=== PATIENT | female | born 1955 | race Caucasian/White ===

== ENCOUNTER 2018-01-25 16:45 | Emergency (ER) | payer OTHER ==
[~2018-01-25 16:45] MED LIST: CANA300T; CLOP75TA32; ESCI10TA54; EZET1TAB13 PO; GLIP10TA9; Isosorbide Mononitrate PO; LEVO88TA7; LOSA25TA21; METF10004; METO50
== END 2018-01-25 19:41 | disposition home or self-care (01) ==
LOC: EDH 16:45
DX: S80.02XA Contusion of left knee, initial encounter (principal); E11.9 Type 2 diabetes mellitus without complications; I25.10 Atherosclerotic heart disease of native coronary artery without angina pectoris; E07.9 Disorder of thyroid, unspecified; Z90.49 Acquired absence of other specified parts of digestive tract; Z90.710 Acquired absence of both cervix and uterus; Z87.891 Personal history of nicotine dependence; W18.39XA Other fall on same level, initial encounter; Y93.01 Activity, walking, marching and hiking; Y92.89 Other specified places as the place of occurrence of the external cause; Y99.8 Other external cause status
CPT/HCPCS: 36415; 73562; 93005

== ENCOUNTER 2019-12-06 15:51 | Emergency (ER) | payer OTHER ==
[~2019-12-06 15:51] MED LIST changes: -LOSA25TA21; +LOSA25TA41; +METF-446; -METF10004
== END 2019-12-06 16:51 | disposition home or self-care (01) ==
LOC: EDH 15:51
DX: S83.91XA Sprain of unspecified site of right knee, initial encounter (principal); I25.10 Atherosclerotic heart disease of native coronary artery without angina pectoris; E11.9 Type 2 diabetes mellitus without complications; E07.9 Disorder of thyroid, unspecified; W18.39XA Other fall on same level, initial encounter; Y93.89 Activity, other specified; Y92.099 Unspecified place in other non-institutional residence as the place of occurrence of the external cause; Y99.8 Other external cause status
CPT/HCPCS: 73562

== ENCOUNTER 2020-06-22 09:01 | Emergency (ER) | payer SELFPAY ==
[2020-06-22 09:44] LABS: BASOPHILS % (AUTO) 0.4 % (0.0-5.0); EOSINOPHILS % (AUTO) 3.1 % (0.0-8.0); HEMATOCRIT 40.9 % (36-48); MEAN CORPUSCULAR HEMOGLOBIN 27.4 pg (27.0-33.0); MEAN CORPUSCULAR HGB CONC 31.5 g/dL (32.0-36.0); MEAN CORPUSCULAR VOLUME 86.8 fL (79-99); MONOCYTES % (AUTO) 7.5 % (3.0-13.0); NEUTROPHILS % (AUTO) 74.6 % (40.0-77.0); PLATELET COUNT (AUTO) 259 K/uL (130-400); RED BLOOD CELL COUNT(AUTO) 4.71 MIL/uL (4.00-5.50); WHITE BLOOD COUNT (AUTO) 7.6 K/uL (4.8-10.8)
[2020-06-22 09:45] LABS: APPEARANCE,URINE Clear (CLEAR); BILIRUBIN,URINE Negative (NEGATIVE); COLOR,URINE Yellow (YELLOW); GLUCOSE, URINE (UA) >=1000 mg/dL (NEGATIVE); KETONES,URINE 15 mg/dL (NEGATIVE); LEUKOCYTE ESTERASE ,URINE Negative (NEGATIVE); NITRATE,URINE Negative (NEGATIVE); OCCULT BLOOD,URINE Negative (NEGATIVE); PROTEIN,URINE Negative (NEGATIVE); UROBILINOGEN,URINE 0.2 mg/dL (0.2-1.0)
[2020-06-22 09:52] LABS: BACTERIA,URINE Rare /HPF (None Seen); RBC,URINE 0-1 /HPF (0-1); SQUAMOUS EPITHELIAL CELL,UR Rare /HPF (0-2); WBC,URINE 0-1 /HPF (0-1)
[2020-06-22 09:57] LABS: ALBUMIN 3.8 g/dL (3.5-5.0); BILIRUBIN,TOTAL 0.3 mg/dL (0.2-1.0); CREATININE 1.2 mg/dL (0.5-1.5); POTASSIUM 4.2 mmol/L (3.5-5.1); TOTAL PROTEIN, SERUM 7.7 g/dL (6.0-8.3)
[2020-06-22] MEDS ORDERED: SODIUM CHLORIDE 0.9% 500ML 500 ML IV ONE (10:45)
== END 2020-06-22 14:57 | disposition home or self-care (01) ==
LOC: EDH 09:01
DX: G89.29 Other chronic pain (principal); R10.2 Pelvic and perineal pain; N76.0 Acute vaginitis; E11.65 Type 2 diabetes mellitus with hyperglycemia; I25.10 Atherosclerotic heart disease of native coronary artery without angina pectoris; Z90.49 Acquired absence of other specified parts of digestive tract; Z90.710 Acquired absence of both cervix and uterus; Z98.890 Other specified postprocedural states
CPT/HCPCS: 36415; 80053; 81001; 82948 ×2; 85025; 96372; 99283; J7040

== ENCOUNTER 2020-09-02 12:34 | Inpatient (IN) | payer SELFPAY ==
[~2020-09-02] VITALS: Ht 162.6 cm; Wt 103.6 kg
[2020-09-02] MEDS: SODIUM CHLORIDE 0.9% 1000ML 1,000 ML IV SCH ×3 (06:54→21:30)
[~2020-09-02 12:34] MED LIST changes: -ESCI10TA54; +ESCI10TA70
[2020-09-02 13:18] LABS: BASOPHILS % (AUTO) 0.3 % (0.0-5.0); EOSINOPHILS % (AUTO) 4.8 % (0.0-8.0); HEMATOCRIT 37.2 % (36-48); LYMPHOCYTES % (AUTO) 17.3 % (21.0-51.0); MEAN CORPUSCULAR HEMOGLOBIN 27.6 pg (27.0-33.0); MEAN CORPUSCULAR HGB CONC 31.7 g/dL (32.0-36.0); MEAN CORPUSCULAR VOLUME 86.9 fL (79-99); MONOCYTES % (AUTO) 8.2 % (3.0-13.0); NEUTROPHILS % (AUTO) 69.1 % (40.0-77.0); PLATELET COUNT (AUTO) 273 K/uL (130-400); RED BLOOD CELL COUNT(AUTO) 4.28 MIL/uL (4.00-5.50); WHITE BLOOD COUNT (AUTO) 7.3 K/uL (4.8-10.8)
[2020-09-02 13:43] LABS: CREATININE 0.9 mg/dL (0.5-1.5); POTASSIUM 3.1 mmol/L (3.5-5.1)
[2020-09-02 13:48] LABS: ALBUMIN 3.5 g/dL (3.5-5.0); BILIRUBIN,TOTAL 0.7 mg/dL (0.2-1.0); TOTAL PROTEIN, SERUM 7.5 g/dL (6.0-8.3)
[2020-09-02] MEDS ORDERED: MORPHINE SULFATE 4 MG/1ML SYG ONE (14:04)
[2020-09-02] MEDS ORDERED: ONDANSETRON HCL 4 MG/2 ML VIAL ONE (14:04)
[2020-09-02] MEDS ORDERED: DiphenhydrAMINE HCL 50 MG/ML VIAL ONE (14:14)
[2020-09-02 14:29] LABS: APPEARANCE,URINE Cloudy (CLEAR); BILIRUBIN,URINE Negative (NEGATIVE); COLOR,URINE Yellow (YELLOW); GLUCOSE, URINE (UA) Negative (NEGATIVE); KETONES,URINE Trace mg/dL (NEGATIVE); LEUKOCYTE ESTERASE ,URINE Negative (NEGATIVE); NITRATE,URINE Negative (NEGATIVE); OCCULT BLOOD,URINE Negative (NEGATIVE); PH,URINE 5.5 (5.0-8.0); PROTEIN,URINE Trace mg/dL (NEGATIVE)
[2020-09-02 14:36] LABS: BACTERIA,URINE Few /HPF (None Seen); MUCUS,URINE Few LPF (None Seen)
[2020-09-02] MEDS ORDERED: POTASSIUM BICARB/CIT AC 25 MEQ TABLET.EFF ONE (14:45)
[2020-09-02] MEDS ORDERED: TRAMADOL HCL 50 MG TABLET PO PRN (17:30)
[2020-09-02] MEDS ORDERED: POTASSIUM CHLORIDE 20 MEQ ERTAB PO SCH (17:30)
[2020-09-02] MEDS ORDERED: ACETAMINOPHEN 325 MG TAB PO PRN (17:30)
[2020-09-02] MEDS: CEFAZOLIN SODIUM 1 GM VIAL IVP SCH (17:30)
[2020-09-02 17:49] LABS: HEMOGLOBIN A1C 8.4 % (4.0-6.0)
[2020-09-02] MEDS ORDERED: SODIUM CHLORIDE 0.9% 1000ML 1,000 ML IV ONE (17:49)
[2020-09-02] MEDS ORDERED: CEFAZOLIN SODIUM 1 GM VIAL ONE (17:49)
[2020-09-02 17:52] LABS: CHOLESTEROL 241 mg/dL (<200); HDL CHOLESTEROL 137 mg/dL (35-85); LDL DIRECT 135 mg/dL (0-99); TRIGLYCERIDES 210 mg/dL (30-200)
[2020-09-02] MEDS ORDERED: MAGNESIUM 2GM PREMIX 50ML 50 ML IV ONE ×2 (18:06→20:09)
[2020-09-02] MEDS ORDERED: MAGNESIUM 2GM PREMIX 50ML 50 ML IV SCH (18:15)
[2020-09-02] MEDS ORDERED: METOPROLOL TARTRATE 50 MG TAB ONE (20:59)
[2020-09-02] MEDS ORDERED: ASPIRIN 81MG TAB.CHEW ONE (20:59)
[2020-09-02] MEDS: INSULIN HUMULIN R 100 UNIT/ML 3ML SQ SCH (21:00)
[2020-09-02] MEDS: ASPIRIN 81MG TAB.CHEW PO SCH (21:00)
[2020-09-02] MEDS: METOPROLOL TARTRATE 50 MG TAB PO SCH (21:00)
[2020-09-02 22:00] VITALS: BP 136/78
[2020-09-03] VITALS: BP 142/79
[2020-09-03] MEDS: HYDROMORPHONE HCL 0.5 MG/0.5 ML ML IVP PRN ×2 (00:01→19:34)
[2020-09-03 03:45] VITALS: BP 134/75
[2020-09-03] MEDS ORDERED: LACTATED RINGERS 1000ML 1,000 ML IV ONE ×2 (04:03→04:35)
[2020-09-03] MEDS: LEVOTHYROXINE 125 MCG TABLET PO SCH (05:34)
[2020-09-03] MEDS ORDERED: HYDROMORPHONE 1 MG/1 ML AMP ONE (05:46)
[2020-09-03 06:33] LABS: BASOPHILS % (AUTO) 0.5 % (0.0-5.0); EOSINOPHILS % (AUTO) 5.4 % (0.0-8.0); HEMATOCRIT 37.2 % (36-48); LYMPHOCYTES % (AUTO) 17.9 % (21.0-51.0); MEAN CORPUSCULAR HGB CONC 31.7 g/dL (32.0-36.0); MEAN CORPUSCULAR VOLUME 88.2 fL (79-99); MONOCYTES % (AUTO) 9.5 % (3.0-13.0); NEUTROPHILS % (AUTO) 66.4 % (40.0-77.0); PLATELET COUNT (AUTO) 273 K/uL (130-400); RED BLOOD CELL COUNT(AUTO) 4.22 MIL/uL (4.00-5.50); WHITE BLOOD COUNT (AUTO) 7.8 K/uL (4.8-10.8)
[2020-09-03 06:42] LABS: CREATININE 0.8 mg/dL (0.5-1.5); MAGNESIUM 1.8 mg/dL (1.80-2.40); POTASSIUM 3.5 mmol/L (3.5-5.1)
[2020-09-03] MEDS: INSULIN HUMULIN R 100 UNIT/ML 3ML SQ SCH ×4 (07:30→22:21)
[2020-09-03 08:00] VITALS: BP 121/63
[2020-09-03 08:59] LABS: AMPHET/METH SCREEN,URINE NEGATIVE (NEGATIVE); BARBITURATE SCREEN, URINE NEGATIVE (NEGATIVE); BENZODIAZEPINES SCREEN,URINE NEGATIVE (NEGATIVE); CANNABINOID SCREEN,URINE NEGATIVE (NEGATIVE); COCAINE SCREEN,URINE NEGATIVE (NEGATIVE); OPIATE SCREEN,URINE NEGATIVE (NEGATIVE); PHENCYCLIDINE SCREEN,URINE NEGATIVE (NEGATIVE)
[2020-09-03] MEDS: LOSARTAN 50 MG TABLET PO SCH (09:00)
[2020-09-03] MEDS: METOPROLOL TARTRATE 50 MG TAB PO SCH ×2 (09:00→22:13)
[2020-09-03 11:00] VITALS: BP 142/78
[2020-09-03] MEDS: CEFAZOLIN SODIUM 1 GM VIAL IVP SCH ×3 (11:29→18:07)
[2020-09-03 14:49] VITALS: BP 116/55
[2020-09-03 20:32] VITALS: BP 138/86
[2020-09-03] MEDS: ASPIRIN 81MG TAB.CHEW PO SCH (22:13)
[2020-09-04 00:17] VITALS: BP 124/77
[2020-09-04] MEDS: CEFAZOLIN SODIUM 1 GM VIAL IVP SCH ×3 (00:26→18:36)
[2020-09-04 04:04] VITALS: BP 121/72
[2020-09-04] MEDS: LEVOTHYROXINE 125 MCG TABLET PO SCH (05:30)
[2020-09-04] MEDS: INSULIN HUMULIN R 100 UNIT/ML 3ML SQ SCH ×2 (06:09→14:48)
[2020-09-04 06:10] LABS: ALBUMIN 3.2 g/dL (3.5-5.0); BILIRUBIN,TOTAL 0.7 mg/dL (0.2-1.0); CREATININE 0.9 mg/dL (0.5-1.5); MAGNESIUM 1.8 mg/dL (1.80-2.40); POTASSIUM 3.2 mmol/L (3.5-5.1)
[2020-09-04] MEDS ORDERED: POTASSIUM CHLORIDE 20 MEQ ERTAB PO ONE (06:59)
[2020-09-04] MEDS ORDERED: POTASSIUM CHLORIDE 20MEQ/100ML 100 ML IV PRN (07:15)
[2020-09-04] MEDS ORDERED: POTASSIUM CHLORIDE 10% ELIXIR 20 MEQ/15 ML UDCUP PO PRN (07:15)
[2020-09-04] MEDS ORDERED: POTASSIUM CHLORIDE 20 MEQ ERTAB PO PRN (07:15)
[2020-09-04] MEDS ORDERED: LIDOCAINE HCL-MPF 1% 2ML VIAL IV PRN (07:15)
[2020-09-04 07:57] VITALS: BP 148/80
[2020-09-04] MEDS: LOSARTAN 50 MG TABLET PO SCH (10:40)
[2020-09-04] MEDS: METOPROLOL TARTRATE 50 MG TAB PO SCH (10:40)
[2020-09-04 11:31] VITALS: BP 143/74
[2020-09-04] MEDS ORDERED: ACET-66 PO (13:43)
[2020-09-04] MEDS: SODIUM CHLORIDE 0.9% 1000ML 1,000 ML IV SCH (15:42)
[2020-09-04 16:00] VITALS: BP 179/89
== END 2020-09-04 20:00 | disposition home or self-care (01) | DRG 563 ==
LOC: EDH 12:34 → OBSVTOIN 12:35 → EDHIP 12:35 → 3CH 21:10
PROVIDERS: ADMIT Internal Medicine; ATTEND Internal Medicine
PROC: 2W3MXYZ Immobilization of Left Lower Extremity using Other Device (ICD-10-PCS; 2020-09-02)
PROC: 4A00X4Z Measurement of Central Nervous Electrical Activity, External Approach (ICD-10-PCS; principal; 2020-09-04)
DX: S82.045A Nondisplaced comminuted fracture of left patella, initial encounter for closed fracture (principal); Y93.89 Activity, other specified; Y92.89 Other specified places as the place of occurrence of the external cause; Y99.8 Other external cause status; E87.6 Hypokalemia; E83.42 Hypomagnesemia; I25.10 Atherosclerotic heart disease of native coronary artery without angina pectoris; W01.0XXA Fall on same level from slipping, tripping and stumbling without subsequent striking against object, initial encounter; Z79.82 Long term (current) use of aspirin; Z79.02 Long term (current) use of antithrombotics/antiplatelets; Z95.5 Presence of coronary angioplasty implant and graft; Z82.49 Family history of ischemic heart disease and other diseases of the circulatory system; I10 Essential (primary) hypertension; E11.9 Type 2 diabetes mellitus without complications; E66.9 Obesity, unspecified; Z68.39 Body mass index [BMI] 39.0-39.9, adult; Z90.49 Acquired absence of other specified parts of digestive tract; E78.5 Hyperlipidemia, unspecified; I25.2 Old myocardial infarction; E03.9 Hypothyroidism, unspecified; M25.462 Effusion, left knee
CPT/HCPCS: 36415; 70450; 70551; 71045; 72125; 73562; 80048; 80053; 80061; 80305; 81001; 82948; 83036; 83735; 83880; 84132; 84439; 84443; 84481; 84484; 85025; 93005; 93880; 95819; 97039; G0378; J0690; J1170; J1200; J1815; J2270; J2405; J3475; J7030; J7120

== ENCOUNTER 2022-06-21 14:49 | Emergency (ER) | payer OTHER ==
[~2022-06-21] VITALS: Ht 162.6 cm; Wt 92.5 kg
[~2022-06-21 14:49] MED LIST changes: +ACET-66 PO; +ESCI-8; -ESCI10TA70; +EZET-77 PO; -EZET1TAB13 PO
[2022-06-21 15:17] LABS: BASOPHILS % (AUTO) 0.4 % (0.0-5.0); EOSINOPHILS % (AUTO) 4.7 % (0.0-8.0); HEMATOCRIT 41.1 % (36-48); LYMPHOCYTES % (AUTO) 24.5 % (21.0-51.0); MEAN CORPUSCULAR HEMOGLOBIN 26.7 pg (27.0-33.0); MEAN CORPUSCULAR HGB CONC 31.4 g/dL (32.0-36.0); MEAN CORPUSCULAR VOLUME 84.9 fL (79-99); MONOCYTES % (AUTO) 7.4 % (3.0-13.0); NEUTROPHILS % (AUTO) 62.6 % (40.0-77.0); PLATELET COUNT (AUTO) 225 K/uL (130-400); RED BLOOD CELL COUNT(AUTO) 4.84 MIL/uL (4.00-5.50); RED CELL DISTRIBUTION WIDTH 15.4 % (11.0-15.5); WHITE BLOOD COUNT (AUTO) 7.2 K/uL (4.8-10.8)
[2022-06-21 15:23] LABS: POTASSIUM 4.2 mmol/L (3.5-5.1)
[2022-06-21 15:24] LABS: INR 0.93 (0.85-1.15); PROTHROMBIN TIME 9.9 SEC (9.6-11.6)
[2022-06-21 15:26] LABS: PARTIAL THROMBOPLASTIN TIME 23.5 SEC (26.3-35.5)
[2022-06-21 15:28] LABS: ALBUMIN 3.9 g/dL (3.5-5.0); TOTAL PROTEIN, SERUM 7.6 g/dL (6.0-8.3)
[2022-06-21 15:43] LABS: B-TYPE NATRIURETIC PEPTIDE 43 pg/mL (0-100)
[2022-06-21 16:08] LABS: APPEARANCE,URINE CLEAR (CLEAR); BILIRUBIN,URINE NEGATIVE (NEGATIVE); COLOR,URINE COLORLESS (YELLOW); GLUCOSE, URINE (UA) >=1000 mg/dL (NEGATIVE); KETONES,URINE NEGATIVE (NEGATIVE); LEUKOCYTE ESTERASE ,URINE NEGATIVE Leu/uL (NEGATIVE); NITRATE,URINE NEGATIVE (NEGATIVE); OCCULT BLOOD,URINE NEGATIVE (NEGATIVE); PROTEIN,URINE NEGATIVE (NEGATIVE); UROBILINOGEN,URINE 0.2 mg/dL (0.2-1.0)
[2022-06-21 16:10] LABS: RBC,URINE 0-1 /HPF (0-1); SQUAMOUS EPITHELIAL CELL,UR RARE /HPF (0-2)
[2022-06-21] MEDS ORDERED: IOHEXOL 350 MG/ML 100ML INFUS..BTL IV ONE (17:18)
[2022-06-21 19:37] VITALS: BP 117/74
== END 2022-06-21 19:46 | disposition home or self-care (01) ==
LOC: EDH 14:49
DX: I63.9 Cerebral infarction, unspecified (principal); R20.2 Paresthesia of skin; E11.9 Type 2 diabetes mellitus without complications; E78.00 Pure hypercholesterolemia, unspecified; I10 Essential (primary) hypertension; I25.2 Old myocardial infarction; Z90.89 Acquired absence of other organs; Z90.49 Acquired absence of other specified parts of digestive tract; Z98.890 Other specified postprocedural states; Z79.84 Long term (current) use of oral hypoglycemic drugs; Z79.899 Other long term (current) drug therapy
CPT/HCPCS: 99285; 70496; 70551; 71045; 82550; 83721; 84484; 80053; 83880; 85025; 85610; 85730; 82948; 81001; 36415; 70498; 93005; 70450; Q9967

== ENCOUNTER → 2022-10-17 | Outpatient (CLI) | payer OTHER | END | disposition home or self-care (01) | LOC: RAH 12:35 | PROVIDERS: ATTEND Internal Medicine | DX: N28.89 Other specified disorders of kidney and ureter (principal); R31.0 Gross hematuria; R30.0 Dysuria; Z90.49 Acquired absence of other specified parts of digestive tract | CPT/HCPCS: 74176 ==

== ENCOUNTER 2023-02-07 14:46 | Observation (INO) | payer OTHER ==
[~2023-02-07] VITALS: Ht 165.1 cm; Wt 93.2 kg
[2023-02-07 15:10] LABS: BASOPHILS % (AUTO) 0.2 % (0.0-5.0); EOSINOPHILS % (AUTO) 2.8 % (0.0-8.0); HEMATOCRIT 40.4 % (36-48); MEAN CORPUSCULAR HEMOGLOBIN 27.3 pg (27.0-33.0); MEAN CORPUSCULAR HGB CONC 31.2 g/dL (32.0-36.0); MEAN CORPUSCULAR VOLUME 87.6 fL (79-99); MONOCYTES % (AUTO) 8.7 % (3.0-13.0); NEUTROPHILS % (AUTO) 59.1 % (40.0-77.0); PLATELET COUNT (AUTO) 194 K/uL (130-400); RED BLOOD CELL COUNT(AUTO) 4.61 MIL/uL (4.00-5.50); RED CELL DISTRIBUTION WIDTH 13.9 % (11.0-15.5); WHITE BLOOD COUNT (AUTO) 5.6 K/uL (4.8-10.8)
[2023-02-07 15:23] LABS: CREATININE 0.9 mg/dL (0.5-1.5); POTASSIUM 4.3 mmol/L (3.5-5.1)
[2023-02-07 15:30] LABS: ALBUMIN 3.7 g/dL (3.5-5.0); MAGNESIUM 1.4 mg/dL (1.80-2.40)
[2023-02-07 15:39] LABS: APPEARANCE,URINE CLEAR (CLEAR); BILIRUBIN,URINE NEGATIVE (NEGATIVE); COLOR,URINE YELLOW (YELLOW); GLUCOSE, URINE (UA) NEGATIVE (NEGATIVE); KETONES,URINE NEGATIVE (NEGATIVE); LEUKOCYTE ESTERASE ,URINE MODERATE Leu/uL (NEGATIVE); NITRATE,URINE NEGATIVE (NEGATIVE); OCCULT BLOOD,URINE NEGATIVE (NEGATIVE); PROTEIN,URINE NEGATIVE (NEGATIVE); UROBILINOGEN,URINE 0.2 mg/dL (0.2-1.0)
[2023-02-07 15:48] LABS: MUCUS,URINE RARE LPF (None Seen); SQUAMOUS EPITHELIAL CELL,UR FEW /HPF (0-2)
[2023-02-07] MEDS ORDERED: ONDANSETRON 4MG INJ IVP ONE (18:00)
[2023-02-07] MEDS ORDERED: CEFTRIAXONE 1G VIAL IVPB ONE (18:00)
[2023-02-07] MEDS ORDERED: MORPHINE 4 MG SYG IVP ONE (18:00)
[2023-02-07] MEDS ORDERED: IOHEXOL 350 MG/ML 100ML INFUS..BTL IV ONE (18:11)
[2023-02-07] MEDS: MAGNESIUM 2GM PREMIX 50ML 50 ML IV SCH (18:24)
[2023-02-07] MEDS ORDERED: HYDRALAZINE 20MG/ML VIAL IV PRN (20:30)
[2023-02-07] MEDS ORDERED: ALBUTEROL 0.083% 2.5 MG/3 ML INH IH PRN (20:30)
[2023-02-07] MEDS ORDERED: LABETALOL 20MG SYG IV PRN (20:30)
[2023-02-07] MEDS ORDERED: ONDANSETRON 4MG INJ IVP PRN (20:30)
[2023-02-07] MEDS ORDERED: CLONIDINE HCL 0.1 MG TABLET PO PRN (20:30)
[2023-02-07] MEDS ORDERED: ACETAMINOPHEN 325 MG TAB PO PRN (20:30)
[2023-02-07] MEDS: 0.9%NACL 1000ML 1,000 ML IV SCH (20:34)
[2023-02-07] MEDS: INSULIN HUMULIN R 100 UNIT/ML 3ML SQ SCH (21:00)
[2023-02-07] MEDS: FAMOTIDINE 20MG TAB PO SCH (21:02)
[2023-02-07] MEDS: SIMVASTATIN 20 MG TABLET PO SCH (21:02)
[2023-02-07 21:45] VITALS: BP 111/57
[2023-02-07] MEDS: TEMAZEPAM 15 MG CAPSULE PO PRN (22:29)
[2023-02-08] VITALS (7 sets, daily range): BP systolic 98–128; BP diastolic 53–74
[2023-02-08] MEDS ORDERED: BUSP5TAB3 PO (01:05)
[2023-02-08] MEDS ORDERED: ASPI-1443 PO (01:05)
[2023-02-08] MEDS ORDERED: CALC-877 PO (01:08)
[2023-02-08] MEDS ORDERED: DULO60CA64 PO (01:08)
[2023-02-08] MEDS ORDERED: EMPA25TA PO (01:08)
[2023-02-08] MEDS ORDERED: METO25TA6 PO (01:12)
[2023-02-08] MEDS ORDERED: INSLAN SQ (01:12)
[2023-02-08] MEDS ORDERED: LEVO125T11 PO (01:12)
[2023-02-08] MEDS ORDERED: ROSU10TA28 PO (01:16)
[2023-02-08] MEDS ORDERED: MULT-412 PO (01:16)
[2023-02-08] MEDS ORDERED: TRAZ-187 PO (01:16)
[2023-02-08] MEDS ORDERED: ZINC50TA15 PO (01:16)
[2023-02-08] MEDS: INSULIN HUMULIN R 100 UNIT/ML 3ML SQ SCH ×4 (05:41→20:19)
[2023-02-08 05:58] LABS: HEMATOCRIT 37.2 % (36-48); MEAN CORPUSCULAR HGB CONC 30.9 g/dL (32.0-36.0); MEAN CORPUSCULAR VOLUME 87.3 fL (79-99); PLATELET COUNT (AUTO) 188 K/uL (130-400); RED BLOOD CELL COUNT(AUTO) 4.26 MIL/uL (4.00-5.50); WHITE BLOOD COUNT (AUTO) 5.7 K/uL (4.8-10.8)
[2023-02-08 06:20] LABS: B-TYPE NATRIURETIC PEPTIDE 21 pg/mL (0-100)
[2023-02-08 06:40] LABS: CREATININE 0.8 mg/dL (0.5-1.5); MAGNESIUM 1.6 mg/dL (1.80-2.40); PHOSPHORUS 4.6 mg/dL (2.5-4.9); POTASSIUM 4.4 mmol/L (3.5-5.1); THYROID STIMULATING HORMONE 1.2 uIU/mL (0.36-3.74)
[2023-02-08] MEDS: CEFTRIAXONE 2GM VIAL IVPB SCH (08:40)
[2023-02-08] MEDS: ENOXAPARIN SODIUM 30 MG/0.3 ML SQ SCH (08:40)
[2023-02-08] MEDS: ASPIRIN 81MG CHEW TAB PO SCH (08:40)
[2023-02-08] MEDS: FAMOTIDINE 20MG TAB PO SCH ×2 (08:40→20:14)
[2023-02-08] MEDS: 0.9%NACL 1000ML 1,000 ML IV SCH (08:41)
[2023-02-08] MEDS ORDERED: POTASSIUM CHLORIDE 10% ELIXIR 20 MEQ/15 ML UDCUP PO PRN (12:00)
[2023-02-08] MEDS ORDERED: POTASSIUM CHLORIDE 20MEQ/100ML 100 ML IV PRN (12:00)
[2023-02-08] MEDS ORDERED: KCL 20 MEQ ERTAB PO PRN (12:00)
[2023-02-08] MEDS ORDERED: MAGNESIUM 2GM PREMIX 50ML 50 ML IV PRN (12:00)
[2023-02-08] MEDS: MAGNESIUM 2GM PREMIX 50ML 50 ML IV SCH (12:15)
[2023-02-08] MEDS: METOPROLOL TARTRATE 25 MG TAB PO SCH (20:14)
[2023-02-08] MEDS: SIMVASTATIN 20 MG TABLET PO SCH (20:19)
[2023-02-08] MEDS ORDERED: TRAZODONE HCL 100 MG TABLET PO SCH (21:00)
[2023-02-08] MEDS: TEMAZEPAM 15 MG CAPSULE PO PRN (21:52)
[2023-02-09 04:30] VITALS: BP 105/56
[2023-02-09 05:34] LABS: BASOPHILS % (AUTO) 0.6 % (0.0-5.0); HEMATOCRIT 37.7 % (36-48); MEAN CORPUSCULAR HEMOGLOBIN 26.9 pg (27.0-33.0); MEAN CORPUSCULAR HGB CONC 30.5 g/dL (32.0-36.0); MEAN CORPUSCULAR VOLUME 88.1 fL (79-99); MONOCYTES % (AUTO) 11.9 % (3.0-13.0); NEUTROPHILS % (AUTO) 47.3 % (40.0-77.0); PLATELET COUNT (AUTO) 183 K/uL (130-400); RED BLOOD CELL COUNT(AUTO) 4.28 MIL/uL (4.00-5.50); WHITE BLOOD COUNT (AUTO) 4.8 K/uL (4.8-10.8)
[2023-02-09 05:48] LABS: ALBUMIN 3.2 g/dL (3.5-5.0); MAGNESIUM 1.7 mg/dL (1.80-2.40); TOTAL PROTEIN, SERUM 6.3 g/dL (6.0-8.3)
[2023-02-09] MEDS ORDERED: LEVOTHYROXINE 125 MCG TABLET PO SCH (06:30)
[2023-02-09] MEDS: INSULIN HUMULIN R 100 UNIT/ML 3ML SQ SCH ×2 (07:30→11:30)
[2023-02-09 07:51] VITALS: BP 115/60
[2023-02-09] MEDS ORDERED: [UNRECOGNIZED DRUG - OTHER] PO SCH (09:00)
[2023-02-09] MEDS ORDERED: CALCIUM CARBONATE PO SCH (09:00)
[2023-02-09] MEDS ORDERED: NON-FORMULARY MEDICATION 1 EACH (Duloxetine HCl 60 MG) PO SCH (09:00)
[2023-02-09] MEDS ORDERED: CA 600MG+VIT D 400 UNIT TAB 1 TAB TABLET PO SCH (09:00)
[2023-02-09] MEDS ORDERED: Rosuvastatin Calcium 10 MG PO SCH (09:00)
[2023-02-09] MEDS ORDERED: INSULIN GLARGINE 100 UNITS/ML 10 ML VIAL SQ SCH (09:00)
[2023-02-09] MEDS ORDERED: [UNRECOGNIZED DRUG - OTHER] PO SCH (09:00)
[2023-02-09] MEDS ORDERED: VITAMIN D3 PO SCH (09:00)
[2023-02-09] MEDS ORDERED: MULTIVITAMIN WITH MINERALS PO SCH (09:00)
[2023-02-09] MEDS ORDERED: ZINC SULFATE 220 CAPSULE PO SCH (09:00)
[2023-02-09] MEDS ORDERED: LOSARTAN 25 MG TABLET PO SCH (09:00)
[2023-02-09] MEDS ORDERED: ISOSORBIDE MONO 60MG SR TAB PO SCH (09:00)
[2023-02-09] MEDS ORDERED: BUSPIRONE HCL 5 MG TABLET PO SCH (09:00)
[2023-02-09] MEDS ORDERED: DULOXETINE HCL 30 MG CAP PO SCH (09:00)
[2023-02-09] MEDS ORDERED: MULTIVITAMIN WITH MINERALS TABLET PO SCH (09:00)
[2023-02-09] MEDS ORDERED: ASPIRIN 81 MG EC TAB PO SCH (09:00)
[2023-02-09] MEDS ORDERED: ZINC GLUCONATE PO SCH (09:00)
[2023-02-09] MEDS ORDERED: ISOSORBIDE MONONITRATE 60 MG PO SCH (09:00)
[2023-02-09] MEDS: CEFTRIAXONE 2GM VIAL IVPB SCH (09:12)
[2023-02-09] MEDS: ENOXAPARIN SODIUM 30 MG/0.3 ML SQ SCH (09:13)
[2023-02-09] MEDS: ASPIRIN 81MG CHEW TAB PO SCH (09:14)
[2023-02-09] MEDS: FAMOTIDINE 20MG TAB PO SCH (09:15)
[2023-02-09] MEDS: METOPROLOL TARTRATE 25 MG TAB PO SCH (09:15)
[2023-02-09 12:06] VITALS: BP 106/58
[2023-02-09] MEDS: 0.9%NACL 1000ML 1,000 ML IV SCH (12:34)
[2023-02-09] MEDS ORDERED: AMOX1TAB16 PO (13:29)
[2023-02-09] MEDS ORDERED: CALC-190 PO (13:29)
[2023-02-09 16:00] VITALS: BP 114/65
== END 2023-02-09 17:15 | disposition home or self-care (01) ==
LOC: EDH 14:46 → EDHIP 20:13 → UNDOADMOB 20:13 → 3CH 21:27 → EDHIP 21:27
PROVIDERS: ADMIT Internal Medicine Critical Care Medicine; ATTEND Internal Medicine Critical Care Medicine
DX: R07.89 Other chest pain (principal); E11.65 Type 2 diabetes mellitus with hyperglycemia; E87.8 Other disorders of electrolyte and fluid balance, not elsewhere classified; N30.00 Acute cystitis without hematuria; I25.10 Atherosclerotic heart disease of native coronary artery without angina pectoris; I25.2 Old myocardial infarction; E03.9 Hypothyroidism, unspecified; E66.9 Obesity, unspecified; F32.A Depression, unspecified; E78.00 Pure hypercholesterolemia, unspecified; Z79.899 Other long term (current) drug therapy
CPT/HCPCS: 96376 ×2; 96375; 99285; 82550 ×3; 83735 ×3; 83874 ×3; 84484 ×4; 80053 ×2; 85025 ×2; 87088; 81001; 36415 ×3; 71045; 71270; 93005; 94664; 96372 ×2; 96365; 84443; 84100; 80061; 80048; 83880; 85027; 82948 ×7; 72125; 72128; 93306; 93356; 84145; 96361; 96366; G0378 ×44; J3475 ×2; J0696 ×3; J2405; J2270; Q9967; J1650 ×2; J1815